=== PATIENT | male | born 1995 | race Caucasian/White ===

== ENCOUNTER 2019-07-09 11:05 | Emergency (ER) | payer OTHER, SELFPAY ==
--- NOTE | ~2019-07-09 | XR_ITS ---
EXAMINATION: XR chest 2V DATE: 07/09/2019 12:05 INDICATION: Palpitations. TECHNIQUE: Frontal and lateral views of the chest were obtained. COMPARISON: None. FINDINGS: The chest demonstrates clear lungs without pneumonia, pleural effusion, or pneumothorax. Th e heart size is normal. IMPRESSION: 1. No acute cardiopulmonary disease. Reviewed, dictated and finalized at location A. [facility] [employer]
[2019-07-09 11:08] VITALS: BP 149/84; PULSE 81; RESP 18; TEMP 36; O2SAT 100
[2019-07-09 11:31] VITALS: PULSE 83
--- NOTE | 2019-07-09 11:32 | ECG_ITS ---
Measurements Intervals [place] Rate: 80 P: 7 [place]: 170 QRS: -28 QRSD: 113 T: 1 QT: 363 QTc: 421 Interpretive Statements SINUS RHYTHM LOW QRS VOLTAGE IN PRECORDIAL LEADS INCOMPLETE RIGHT BUNDLE BRANCH BLOCK BORDERLINE ECG Electronically Signed On 07-09-2019 12:05:02 WEBLOGIC DEVELOPER by Jhony Galo D.O.
--- NOTE | 2019-07-09 11:36 | ED.GENADULT ---
HPI - General Adult General Chief complaint: Unspecified Stated complaint: CP Time Seen by Provider: 07/09/19 11:29 Source: patient and RN notes reviewed Mode of arrival: ambulatory Limitations: no limitations History of Present Illness HPI narrative: Pt is a 24 y/o male with a Hx of anxiety and panic attacks, who presents to the ED with c/o heart palpitations. He notes that he has been having intermittent heart palpitations and lightheadedness for the past several days. Pt also states that he has had jaw pain for the past 2-3 days, noting that he is scheduled for a dentist appointment tomorrow. Pt states that he typically only has palpitations when lying down. He notes that he has also felt more fatigued recently. Pt states that he developed central chest pain this morning, noting that his pain feels similar to acid reflux. He denies any recent diaphoresis, LE edema, LE pain, or ABD pain. Pt notes feeling anxious, but states that his current symptoms feel different than previous panic attacks. MD complaint: Heart Palpitations Onset (ago): day(s) (several) Exacerbating factors: other (lying down) Associated symptoms: chest pain (central chest pain) and other (fatigue; lightheadedness; jaw pain; anxiety) Related Data Home Medications Medication Instructions Recorded Confirmed sertraline 50 mg 07/09/19 Allergies Allergy/AdvReac Type Severity Reaction Status Date / Time No Known Allergies Allergy Verified 07/09/19 11:14 Review of Systems Review of Systems: Narrative: CONSTITUTIONAL: Denies fever, chills, or sweats. Reports fatigue. CARDIOVASCULAR: Reports central chest pain and palpitations. Denies LE edema. RESPIRATORY: Denies dyspnea. GASTROINTESTINAL: Denies abdominal pain, nausea, vomiting, or diarrhea. MUSCULOSKELETAL: Reports jaw pain. Denies back pain, LE pain, joint pain, or myalgia. NEUROLOGIC: Denies headache, numbness, or weakness. Reports lightheadedness. PSYCHIATRIC: Reports anxiety. Denies depression. All systems reviewed & are unremarkable except as noted in HPI and below PMFSH Past Medical History Medical History Anxiety Panic attacks Surgical History Surgical History No significant past surgical history Family History Family History (Updated 07/09/19 @ 12:06 by Justin Barker) Father Atrial fibrillation Grandparent Acute myocardial infarction Social History Social History Smoking status: Never smoker Alcohol intake: current Gender identity (if verbalized by the patient): Male Exam Narrative: Exam Narrative: GENERAL: Mildly anxious appearing, well-nourished, and in no acute distress. HEAD: Normocephalic, atraumatic. EYES: PERRLA and EOMI. ENT: Nares clear, no rhinorrhea or epistaxis. Mucous membranes moist. NECK: Supple. CHEST: Clear to auscultation. No respiratory distress. No chest wall tenderness. HEART: Regular rate and rhythm. No murmur heard. Normal peripheral pulses. ABDOMEN: Soft, nontender, nondistended, normal active bowel sounds. EXTREMITIES: Normal range of motion. No edema. No calf tenderness. SKIN: Warm, dry, no rash. NEURO: No focal deficits. Alert and oriented. Course Course Emergency Course: Patient's EKG and labs are without significant high risk changes. Cardiac risk factors reviewed. Patient is felt low risk for ACS and reasonable for further risk stratification testing as an outpatient. Pain was not sudden or maximal or onset without tearing or ripping quality. No other signs or symptoms to suggest aortic dissection. A low risk well's criteria is noted, PE is felt to be unlikely. Patient without tachycardia, hypoxia, pleuritic chest pain, no recent travel, no calf pain, [place] low risk. No pneumonia seen on evaluation today. No signs of arrhythmia while monitored on telemetry. No recurrent palpitations or pain. Patient has
[2019-07-09 12:00] LABS: Basophils Percent Auto 0.2 % (0.2-1.2); Eosinophils Absolute Auto 0.1 K/mm3 (0-0.3); Eosinophils Percent Auto 1.2 % (0-4.4); Hematocrit 42.4 % (42.0-52.0); Hemoglobin 14.2 g/dL (14.0-18.0); Immature Granulocyte Absolute 0.01 K/mm3 (0.00-0.031); Immature Granulocyte Percent A 0.2 % (0-0.5); Immature Platelet Fraction Pct 4.5 % (0.9-11.2); Lymphocytes Absolute Auto 1.41 K/mm3 (0.9-3.2); Lymphocytes Percent Auto 27.8 % (18.3-44.2); Mean Corpuscular HGB Conc 33.5 g/dl (32-36); Mean Corpuscular Hemoglobin 28.5 pg (26-34); Mean Platelet Volume 11.6 fl (7.4-10.4); Monocytes Absolute Auto 0.5 K/mm3 (0.1-0.6); Monocytes Percent Auto 9.3 % (2.6-8.5); Neutrophils Absolute Auto 3.1 K/mm3 (1.3-6.7); Neutrophils Percent Auto 61.3 % (45.5-73.1); Platelet Count Result 115 k/mm3 (150-375); Red Blood Count 4.99 M/mm3 (4.6-6.20); Red Cell Distribution Width 12.4 % (11.5-14.5); White Blood Count 5.1 K/mm3 (4.5-10.0)
[2019-07-09 12:10] LABS: Alanine Aminotransferase 27 U/L (4-50); Albumin Level 4.5 g/dL (3.5-5.1); Alkaline Phosphatase 53 U/L (38-126); Aspartate Amino Transferase 33 U/L (17-59); Bilirubin,Total 0.6 mg/dL (0.2-1.3); Blood Urea Nitrogen 15 mg/dL (9-20); Calcium 9.2 mg/dL (8.4-10.2); Carbon Dioxide 26 mmol/L (22-30); Chloride 103 mmol/L (98-107); Estimated CRCL calculation 152 ml/min; Estimated Glomerular Filt Rate > 60; Glucose 104 mg/dL (75-110); Lipase 72 U/L (23-300); Potassium 3.5 mmol/L (3.4-5.0); Sodium 137 mmol/L (137-145)
[2019-07-09 12:22] LABS: Troponin I < 0.012 ng/mL (0.000-0.034)
[2019-07-09] MEDS: FAMOTIDINE 20 MG/2 ML VIAL IV PUSH (12:24)
[2019-07-09] MEDS: BELLADONNA ALK/PHENOB ELIX 10 ML, MAG HYDROX/ALUMINUM HYD/SIMETH 30 ML, LIDOCAINE HCL 2... PO (12:24)
[2019-07-09] MEDS: ASPIRIN 81 MG CHEWABLE TABLET 324 MG PO (12:24)
[2019-07-09] MEDS: ONDANSETRON INJ 4 MG/2 ML VIAL IV PUSH (12:24)
[2019-07-09 13:16] VITALS: BP 138/70; PULSE 78; RESP 16; O2SAT 99
[2019-07-09 14:00] LABS: INR 0.9
[2019-07-09 14:01] LABS: Partial Thromboplastin Time 22.8 SECONDS (22.3-36.8)
[2019-07-09 14:42] VITALS: PULSE 60; RESP 18; O2SAT 99
[2019-07-09 15:08] LABS: Troponin I < 0.012 ng/mL (0.000-0.034)
[2019-07-09 15:20] VITALS: BP 138/90; PULSE 70; RESP 16; O2SAT 98
== END 2019-07-09 15:50 | disposition home or self-care (01) ==
PROVIDERS: Emergency Provider Emergency Medicine
DX: R00.2 Palpitations (principal); F41.0 Panic disorder [episodic paroxysmal anxiety]; F41.9 Anxiety disorder, unspecified; I45.10 Unspecified right bundle-branch block
CPT/HCPCS: 36415; 71046; 80053; 83690; 84484; 85025; 85055; 85610; 85730; 93005; 96374; 96375; 99284; A9270; J2405